=== PATIENT | male | born 1960 | race Caucasian/White ===

== ENCOUNTER 2019-04-25 14:06 | Emergency (ER) | payer OTHER ==
--- NOTE | 2019-04-25 14:14 | PDOC ---
Rapid Medical Evaluation Chief Complaint: Injury Time Seen by Provider: 04/25/19 14:14 Medical Evaluation: Allergies Allergy/AdvReac Type Severity Reaction Status Date / Time No Known Allergies Allergy Verified 09/21/12 16:59 04/25/19 14:14 I have performed a brief in-person evaluation of this patient. The patient presents with a chief complaint of: foot injury Pertinent physical exam findings:stable and in NAD, non-focal I have ordered the following: xray The patient will proceed to the ED for further evaluation. 04/25/19 14:17 Discharge Disposition - Discharge Dispostion Condition at time of disposition: Stable - Referrals - Patient Instructions - Post Discharge Activity
[2019-04-25 14:17] VITALS: BP 143/94; PULSE 85; TEMP 97.8; BMI 29.8
--- NOTE | 2019-04-25 14:47 | PDOC ---
History of Present Illness - General Chief Complaint: Injury Stated Complaint: LT FOOT INJURY Time Seen by Provider: 04/25/19 14:14 History Source: Patient Exam Limitations: No Limitations - History of Present Illness Initial Comments: 04/25/19 15:30 58-year-old male with history of hypertension presents complaining of left fourth toe pain after injury sustained yesterday. Patient was home wearing sandals when he tripped over his rug. Did not strike the ground, denies head injury, neck pain, headache, chest pain, abdominal pain or any other complaint. Sprayed Biofreeze on toe last night for pain. Did not take any pain meds today. ROS: GENERAL/CONSTITUTIONAL: No fever, chills, weakness, dizziness HEAD, EYES, EARS, NOSE AND THROAT: No changes in vision, No ear pain or discharge, No sore throat CARDIOVASCULAR: No chest pain RESPIRATORY: No shortness of breath or cough GASTROINTESTINAL: No pain, nausea, vomiting, diarrhea or constipation GENITOURINARY: No dysuria MUSCULOSKELETAL: Left fourth toe pain SKIN: No rash NEUROLOGIC: No headache, vertigo, loss of consciousness, or loss of sensation PE: GENERAL: awake, alert, and fully oriented, NAD HEAD: NCAT EYES: Pupils equal, round and reactive to light, sclera anicteric, conjunctiva clear ENT: pharynx: no erythema, no exudate, uvula midline NECK: supple CHEST: nontender RESP: clear, no w/r/r CARDIO: rrr, no m/g/r ABD: +BS, soft, nontender, non distended BACK: no midline spinal ttp, no CVAT EXTREMITIES: Ecchymosis, minimal swelling to left fourth toe, no bony tenderness to palpation, normal range of motion NEUROLOGICAL: Ambulating with slight limp SKIN: Warm, Dry Past History - Past Medical History Allergies/Adverse Reactions: Allergies Allergy/AdvReac Type Severity Reaction Status Date / Time No Known Allergies Allergy Verified 04/25/19 14:31 Home Medications: Ambulatory Orders Esomeprazole Mag Trihydrate [Nexium] 09/12/12 Oxycodone HCl/Acetaminophen [Percocet 5-325 mg Tablet] 1 - 2 tab PO Q4H #20 tablet 09/12/12 Sertraline HCl [Zoloft] 09/12/12 Docusate Sodium [Colace] 100 mg PO BID #28 capsule 09/21/12 Hydrocortisone Acetate [Anusol-Hc] 25 mg RC BID #28 supp.rect 09/21/12 COPD: No Disorders: Yes (ulcer) HTN: Yes - Immunization History Immunization Up to Date: No - Psycho Social/Smoking Cessation Hx Smoking Status: No Smoking History: Current some day smoker Have you smoked in the past 12 months: No Number of Cigarettes Smoked Daily: 0 Information on smoking cessation initiated: No Hx Alcohol Use: Yes Drug/Substance Use Hx: No *Physical Exam - Vital Signs Last Vital Signs Temp Pulse Resp BP Pulse Ox 97.8 F 85 16 143/94 98 04/25/19 14:14 04/25/19 14:14 04/25/19 14:14 04/25/19 14:14 04/25/19 14:14 Medical Decision Making - Medical Decision Making 04/25/19 15:34 Assessment and plan: Left toe pain status post injury No acute fracture to left toe noted on left foot x-ray Ibuprofen 600 mg 1 tablet administered Ambulating with slight limp RICE Postop shoe given Understands discharge instructions 04/25/19 15:47 Discharge - Discharge Information Problems reviewed: Yes Clinical Impression/Diagnosis: Toe pain, left Condition: Stable Disposition: HOME - Admission No - Follow up/Referral Referrals: ON STAFF,NOT [Primary Care Provider] - - Patient Discharge Instructions Additional Instructions: Your foot x-ray did not indicate a toe fracture today Take ibuprofen by mouth 600 mg 1 tablet every 4-6 hours as needed for pain Wear postop shoe for comfort Rest, elevate, apply ice - Post Discharge Activity
[2019-04-25] MEDS ORDERED: IBUPROFEN 600 MG TABLET (FP) PO ONE ×2 (14:48)
== END 2019-04-25 15:53 | disposition home or self-care (01) ==
LOC: JERFT 14:06
DX: M79.675 Pain in left toe(s) (principal); S99.822A Other specified injuries of left foot, initial encounter; W22.8XXA Striking against or struck by other objects, initial encounter; Y93.89 Activity, other specified; Y92.018 Other place in single-family (private) house as the place of occurrence of the external cause; Y99.8 Other external cause status; I10 Essential (primary) hypertension
CPT/HCPCS: 73630-TC-LT; 99281-25

== ENCOUNTER 2021-10-05 09:14 | Emergency (ER) | payer OTHER ==
[2021-10-05 09:26] VITALS: BP 131/80; PULSE 102; TEMP 98; BMI 29.5
== END 2021-10-05 11:15 | disposition home or self-care (01) ==
LOC: JERFT 09:14
DX: K64.9 Unspecified hemorrhoids (principal)
CPT/HCPCS: 36415; 82272; 99283-25

== ENCOUNTER 2022-04-22 02:20 | Inpatient (IN) | payer OTHER ==
[2022-04-22] MEDS ORDERED: SODIUM CHLORIDE 0.9% 500 ML INFUS.BAG IV ONE (03:39)
[2022-04-22] MEDS ORDERED: KETOROLAC TROMETHAMINE 15 MG/ML VIAL IVPUSH ONE (03:39)
[2022-04-22] MEDS ORDERED: KETOROLAC TROMETHAMINE 15 MG/ML VIAL ONE (03:49)
[2022-04-22 04:31] LABS: BASO % 1.1 % (0-2.0); EOS % 4.4 % (0-4.5); LYMPH % 18.5 % (8-40); MCH 29.9 pg (25.7-33.7); MCHC 34.1 g/dl (32.0-35.9); MEAN CELL VOLUME 87.8 fl (80-96); MEAN PLT VOLUME 8.5 fl (7.5-11.1); MONO % 10.3 % (3.8-10.2); NEUT % 65.7 % (42.8-82.8); PLATELET COUNT 209 10^3/uL (134-434); RBC 5.01 M/mm3 (4.00-5.60); RDW 13.4 % (11.9-15.9); WHITE BLOOD COUNT 7.4 K/mm3 (4.0-10.0)
[2022-04-22 04:34] LABS: EPI CELLS 0 /uL (0-25.1); HYALINE CASTS 0 /uL (0-3.1); PH,URINE 5.5 (5.0-8.0); URINE APPEARANCE CLEAR; URINE BACTERIA 3 /uL (0-1359); URINE BILIRUBIN NEGATIVE (NEGATIVE); URINE COLOR YELLOW; URINE GLUCOSE (UA) NEGATIVE (NEGATIVE); URINE KETONE NEGATIVE (NEGATIVE); URINE LEUK ESTERASE NEGATIVE (NEGATIVE); URINE NITRITE NEGATIVE (NEGATIVE); URINE PROTEIN NEGATIVE (NEGATIVE); URINE RBC 35 /uL (0-23.9); URINE UROBILINOGEN 0.2 mg/dL (0.2-1.0); URINE WBC 2 /uL (0-25.8)
[2022-04-22 04:51] LABS: CALCIUM 8.9 mg/dL (8.5-10.1)
[2022-04-22 04:52] LABS: ALBUMIN 3.6 g/dl (3.4-5.0); BLOOD UREA NITROGEN 26.5 mg/dL (7-18)
[2022-04-22 04:54] LABS: CREATININE 1.5 mg/dL (0.55-1.3)
[2022-04-22 04:56] LABS: BILIRUBIN,TOTAL 0.2 mg/dL (0.2-1); TOT PROT 6.8 g/dl (6.4-8.2)
[2022-04-22 05:07] LABS: ACTIVATED PTT 33.8 SECONDS (25.2-36.5)
[2022-04-22 06:02] LABS: INR 1.07 (0.83-1.09); PROTHROMBIN TIME (PATIENT) 12.3 SEC (9.7-13.0)
[2022-04-22] MEDS ORDERED: HEPARIN NA (PORCINE) 5,000 UNITS/ML 1ML VIAL SQ ONE (06:33)
[2022-04-22] MEDS ORDERED: TAMSULOSIN HCL 0.4 MG CAP PO ONE (06:47)
[2022-04-22] MEDS ORDERED: TAMSULOSIN HCL 0.4 MG CAP ONE (07:05)
[2022-04-22] MEDS ORDERED: HEPARIN NA (PORCINE) 5,000 UNITS/ML 1ML VIAL ONE (07:05)
[2022-04-22] MEDS: SODIUM CHLORIDE 1,000 ML IV SCH ×2 (09:41→18:42)
[2022-04-22] MEDS: ACETAMINOPHEN 1000 MG/100 ML BAG IVPB PRN ×2 (09:42→16:37)
[2022-04-22] MEDS: GABAPENTIN 300 MG CAPSULE PO SCH (09:43)
[2022-04-22] MEDS ORDERED: hydrALAZINE HCL 25 MG TABLET (FP) PO SCH (10:00)
[2022-04-22] MEDS ORDERED: VALSARTAN 80 MG TABLET PO SCH (10:00)
[2022-04-22 10:45] VITALS: BMI 29.7
[2022-04-22] MEDS: hydrALAZINE HCL 25 MG TABLET (FP) PO SCH ×2 (14:19→22:22)
[2022-04-22] MEDS ORDERED: ATORVASTATIN CA 40 MG TABLET (FP) PO SCH (22:00)
[2022-04-23] MEDS: ACETAMINOPHEN 1000 MG/100 ML BAG IVPB PRN (04:30)
[2022-04-23] MEDS: SODIUM CHLORIDE 1,000 ML IV SCH (07:14)
[2022-04-23] MEDS: hydrALAZINE HCL 25 MG TABLET (FP) PO SCH ×3 (07:14→21:29)
[2022-04-23] MEDS ORDERED: MIDAZOLAM HCL 2 MG/2 ML SINGLE DOSE VIAL ONE (08:34)
[2022-04-23] MEDS ORDERED: PROPOFOL 20 ML ONE (08:36)
[2022-04-23 08:54] LABS: BASO % 1.3 % (0-2.0); EOS % 4.3 % (0-4.5); HEMATOCRIT 44.5 % (35.4-49); HEMOGLOBIN 14.6 GM/dL (11.7-16.9); LYMPH % 19.5 % (8-40); MCH 28.7 pg (25.7-33.7); MCHC 32.9 g/dl (32.0-35.9); MEAN CELL VOLUME 87.4 fl (80-96); MEAN PLT VOLUME 8.8 fl (7.5-11.1); MONO % 8.7 % (3.8-10.2); NEUT % 66.2 % (42.8-82.8); PLATELET COUNT 226 10^3/uL (134-434); RBC 5.09 M/mm3 (4.00-5.60); RDW 13.8 % (11.9-15.9); WHITE BLOOD COUNT 6.6 K/mm3 (4.0-10.0)
[2022-04-23] MEDS ORDERED: ONDANSETRON 4 MG/2 ML VIAL IVPUSH PRN ×2 (09:03→10:09)
[2022-04-23] MEDS ORDERED: ACETAMINOPHEN INJECTION 100 ML IVPB ONE (09:04)
[2022-04-23] MEDS ORDERED: LACTATED RINGERS SOLUTION 1,000 ML IV SCH ×2 (09:15→10:09)
[2022-04-23] MEDS ORDERED: GENTAMICIN SO4 80 MG/2 ML VIAL ONE (09:21)
[2022-04-23] MEDS: GABAPENTIN 300 MG CAPSULE PO SCH (09:32)
[2022-04-23] MEDS ORDERED: GENTAMICIN SO4 80 MG/2 ML VIAL IVPB ONE (09:33)
[2022-04-23] MEDS ORDERED: ceFAZolin SODIUM 1 GM VIAL IVPB ONE (09:33)
[2022-04-23] MEDS ORDERED: ceFAZolin SODIUM 1 GM VIAL ONE (09:34)
[2022-04-23] MEDS ORDERED: DEXAMETHASONE SOD PHOSPHATE 4 MG/1 ML VIAL ONE (09:47)
[2022-04-23] MEDS ORDERED: SODIUM CHLORIDE 1,000 ML IV SCH (10:09)
[2022-04-23 10:12] LABS: BLOOD UREA NITROGEN 16.2 mg/dL (7-18); CALCIUM 8.9 mg/dL (8.5-10.1); MAGNESIUM 2.3 mg/dL (1.8-2.4)
[2022-04-23 10:15] LABS: ALBUMIN 3.3 g/dl (3.4-5.0); BILIRUBIN,TOTAL 0.6 mg/dL (0.2-1); PHOSPHOROUS 2.2 mg/dL (2.5-4.9)
[2022-04-23 10:20] LABS: TOT PROT 6.4 g/dl (6.4-8.2)
[2022-04-23] MEDS: ATORVASTATIN CA 40 MG TABLET (FP) PO SCH (21:29)
[2022-04-24] MEDS ORDERED: ACETAMINOPHEN 1000 MG/100 ML BAG IVPB ONE (02:09)
[2022-04-24] MEDS ORDERED: POLYETHYLENE GLYCOL (HEALTHYLAX) 3350 17 GM PACKET PO PRN (02:10)
[2022-04-24] MEDS: hydrALAZINE HCL 25 MG TABLET (FP) PO SCH ×3 (05:22→21:22)
[2022-04-24] MEDS: GABAPENTIN 300 MG CAPSULE PO SCH (09:16)
[2022-04-24] MEDS: VALSARTAN 160 MG TABLET PO SCH (09:16)
[2022-04-24 09:46] LABS: BASO % 0.1 % (0-2.0); EOS % 0.1 % (0-4.5); HEMATOCRIT 41.8 % (35.4-49); HEMOGLOBIN 13.9 GM/dL (11.7-16.9); MCH 29.3 pg (25.7-33.7); MCHC 33.3 g/dl (32.0-35.9); MEAN PLT VOLUME 8.9 fl (7.5-11.1); MONO % 6.9 % (3.8-10.2); NEUT % 85.9 % (42.8-82.8); PLATELET COUNT 254 10^3/uL (134-434); RBC 4.75 M/mm3 (4.00-5.60); RDW 13.9 % (11.9-15.9); WHITE BLOOD COUNT 15.1 K/mm3 (4.0-10.0)
[2022-04-24] MEDS: ACETAMINOPHEN 1000 MG/100 ML BAG IVPB PRN (17:46)
[2022-04-24] MEDS: ATORVASTATIN CA 40 MG TABLET (FP) PO SCH (21:22)
[2022-04-24] MEDS: POLYETHYLENE GLYCOL (HEALTHYLAX) 3350 17 GM PACKET PO SCH (21:23)
[2022-04-25] MEDS: ACETAMINOPHEN 1000 MG/100 ML BAG IVPB PRN ×2 (05:56→15:29)
[2022-04-25] MEDS: hydrALAZINE HCL 25 MG TABLET (FP) PO SCH ×2 (05:57→15:30)
[2022-04-25 09:16] LABS: BASO % 0.7 % (0-2.0); EOS % 2.1 % (0-4.5); HEMATOCRIT 44.4 % (35.4-49); HEMOGLOBIN 14.7 GM/dL (11.7-16.9); LYMPH % 21.1 % (8-40); MCH 29.1 pg (25.7-33.7); MCHC 33.2 g/dl (32.0-35.9); MEAN CELL VOLUME 87.8 fl (80-96); MEAN PLT VOLUME 8.3 fl (7.5-11.1); MONO % 6.7 % (3.8-10.2); NEUT % 69.4 % (42.8-82.8); PLATELET COUNT 253 10^3/uL (134-434); RBC 5.06 M/mm3 (4.00-5.60); RDW 13.8 % (11.9-15.9); WHITE BLOOD COUNT 9.3 K/mm3 (4.0-10.0)
[2022-04-25 09:28] LABS: CALCIUM 9.3 mg/dL (8.5-10.1)
[2022-04-25 09:29] LABS: ALBUMIN 3.5 g/dl (3.4-5.0); BLOOD UREA NITROGEN 16.3 mg/dL (7-18); MAGNESIUM 2.2 mg/dL (1.8-2.4)
[2022-04-25 09:32] LABS: CREATININE 1.1 mg/dL (0.55-1.3); PHOSPHOROUS 2.3 mg/dL (2.5-4.9)
[2022-04-25 09:34] LABS: BILIRUBIN,TOTAL 0.5 mg/dL (0.2-1)
[2022-04-25] MEDS ORDERED: CEFTRIAXONE 1 GM in DEXTROSE 5%-WATER - 50 ML IVPB SCH (10:00)
[2022-04-25] MEDS: VALSARTAN 160 MG TABLET PO SCH (10:30)
[2022-04-25] MEDS: POLYETHYLENE GLYCOL (HEALTHYLAX) 3350 17 GM PACKET PO SCH (10:30)
[2022-04-25] MEDS: GABAPENTIN 300 MG CAPSULE PO SCH (10:30)
[2022-04-25 10:43] VITALS: RESP 18
[2022-04-25] MEDS ORDERED: NAPH,MB-DB/K PH,MBDB POWDER PACKET PO ONE (14:15)
[2022-04-25 15:23] VITALS: BP 139/90; PULSE 107; TEMP 98.3
[2022-04-29 16:08] LABS: SIZE 7x5 mm (.); URIC ACID 100 % (.); WEIGHT 70 mg (.)
== END 2022-04-25 17:40 | disposition home or self-care (01) | DRG 446 ==
LOC: JER 02:20 → JERBED 06:29 → J8W 09:08
PROVIDERS: ADMIT Family Medicine; ATTEND Internal Medicine
PROC: 0T778DZ Dilation of Left Ureter with Intraluminal Device, Via Natural or Artificial Opening Endoscopic (ICD-10-PCS; principal; 2022-04-23 09:00)
PROC: 0TC78ZZ Extirpation of Matter from Left Ureter, Via Natural or Artificial Opening Endoscopic (ICD-10-PCS; 2022-04-23 09:00)
PROC: BT1FZZZ Fluoroscopy of Left Kidney, Ureter and Bladder (ICD-10-PCS; 2022-04-23 09:00)
DX: N13.2 Hydronephrosis with renal and ureteral calculous obstruction (principal); I10 Essential (primary) hypertension; E78.5 Hyperlipidemia, unspecified; R31.9 Hematuria, unspecified
CPT/HCPCS: 0241U-QW; 36415; 74176-TC; 76000-TC-FY; 76775-TC; 76856-TC; 80053; 81003; 82360; 83735; 84100; 84443; 85025; 85610; 85730; 86850; 86900; 86901; 87086; 88108; 88300-TC; 93005; 93010; 94760; 99285-25; C1758; C2617; J1644

== ENCOUNTER 2022-06-03 04:29 | Day surgery (SDC) | payer OTHER ==
[2022-05-23 14:21] VITALS: BMI 29.7
[2022-06-03 07:28] VITALS: BP 145/88; PULSE 100; RESP 18; TEMP 98
[2022-06-03] MEDS ORDERED: FENTANYL CITRATE/PF 50 MCG/ML VIAL ONE (09:22)
[2022-06-03] MEDS ORDERED: PROPOFOL 20 ML ONE (09:22)
[2022-06-03] MEDS ORDERED: MIDAZOLAM HCL 2 MG/2 ML SINGLE DOSE VIAL ONE (09:23)
== END 2022-06-03 10:37 | disposition home or self-care (01) ==
LOC: JASU-SURG 04:29
PROVIDERS: ATTEND Urology
DX: Z53.8 Procedure and treatment not carried out for other reasons (principal)

== ENCOUNTER 2022-06-15 04:06 | Day surgery (SDC) | payer OTHER ==
[2022-06-09 12:39] VITALS: BMI 29.7
[2022-06-15] MEDS ORDERED: ONDANSETRON 4 MG/2 ML VIAL IVPUSH PRN (11:27)
[2022-06-15] MEDS ORDERED: oxyCODONE HCL 5 MG TABLET PO PRN (11:27)
[2022-06-15] MEDS ORDERED: LACTATED RINGERS SOLUTION 1,000 ML IV SCH (11:30)
[2022-06-15] MEDS ORDERED: PROPOFOL 20 ML ONE ×3 (12:26→12:49)
[2022-06-15] MEDS ORDERED: FENTANYL CITRATE/PF 50 MCG/ML VIAL ONE ×3 (12:26→13:59)
[2022-06-15] MEDS ORDERED: MIDAZOLAM HCL 2 MG/2 ML SINGLE DOSE VIAL ONE (12:26)
[2022-06-15] MEDS ORDERED: DEXAMETHASONE SOD PHOSPHATE 4 MG/1 ML VIAL ONE (12:27)
[2022-06-15] MEDS ORDERED: ONDANSETRON 4 MG/2 ML VIAL ONE (12:27)
[2022-06-15] MEDS ORDERED: LIDOCAINE HCL/PF 2% SDV 5ML VIAL ONE (12:27)
[2022-06-15] MEDS ORDERED: ceFAZolin SODIUM 1 GM VIAL ONE (12:46)
[2022-06-15] MEDS ORDERED: ceFAZolin SODIUM 1 GM VIAL IVPB ONE (12:46)
[2022-06-15 14:48] VITALS: RESP 18
[2022-06-15 16:02] VITALS: TEMP 97.9
[2022-06-15 16:33] VITALS: BP 148/87; PULSE 87
== END 2022-06-15 16:10 | disposition home or self-care (01) ==
LOC: JASU-SURG 04:06
PROVIDERS: ATTEND Urology
PROC: 0T778DZ Dilation of Left Ureter with Intraluminal Device, Via Natural or Artificial Opening Endoscopic (ICD-10-PCS; 2022-06-15)
PROC: 0TC78ZZ Extirpation of Matter from Left Ureter, Via Natural or Artificial Opening Endoscopic (ICD-10-PCS; principal; 2022-06-15 11:00)
DX: N13.2 Hydronephrosis with renal and ureteral calculous obstruction (principal)
CPT/HCPCS: 76000-TC-FY; 94760; C1758